=== PATIENT | female | born 1995 ===

== ENCOUNTER 2017-04-10 00:13 | Emergency (ER) | payer SELFPAY ==
[2017-04-10 00:18] VITALS: BP 114/78; PULSE 105; RESP 20; TEMP 98.3; O2SAT 100
--- NOTE | 2017-04-10 01:20 | C.PDOC ---
History Of Present Illness Patient is a 22 year old female who presents to the ER with a complaint of a dry cough, sore throat, itchy and watery eyes, and nasal discharge for the past 2 days. Patient reports taking dayquil with no relief to symptoms. Patient also reports subjective fever and chills. Denies recent travel or sick contact. Time Seen by Provider: 04/10/17 00:44 Chief Complaint (Nursing): Fever History Per: Patient History/Exam Limitations: no limitations Onset/Duration Of Symptoms: Days (2) Current Symptoms Are (Timing): Still Present Location Of Pain: Throat Sick Contacts (Context): None Associated Symptoms: Fever (Subjective), Chills (Subjective), Sore Throat, Cough , Nasal Congestion Recent travel outside of the [place]: No Past Medical History Reviewed: Historical Data, Nursing Documentation, Vital Signs Vital Signs: Last Vital Signs Temp 98.3 F 04/10/17 00:15 Pulse 105 H 04/10/17 00:15 Resp 20 04/10/17 00:15 BP 114/78 04/10/17 00:15 Pulse Ox 100 04/10/17 01:21 - Medical History PMH: No Chronic Diseases Surgical History: No Surg Hx Family History: States: Unknown Family Hx - Social History Hx Tobacco Use: No Hx Alcohol Use: No Hx Substance Use: No - Immunization History Hx Tetanus Toxoid Vaccination: No Hx Influenza Vaccination: No Hx Pneumococcal Vaccination: No Review Of Systems Constitutional: Positive for: Fever (Subjective), Chills (Subjective) Eyes: Positive for: Other (Itchy, watery) ENT: Positive for: Nose Discharge, Throat Pain Respiratory: Positive for: Cough Physical Exam - Physical Exam Appears: Well, Non-toxic Skin: Normal Color, Warm, Dry Head: Atraumatic, Normacephalic Nose: Discharge, Other (Enlarged turbinates) Oral Mucosa: Moist Chest: Symmetrical, No Tenderness Cardiovascular: Rhythm Regular, No Murmur Respiratory: Normal Breath Sounds, No Rales, No Rhonchi, No Wheezing Neurological/Psych: Oriented x3, Normal Speech, Normal Cognition ED Course And Treatment O2 Sat by Pulse Oximetry: 100 (Room air) Pulse Ox Interpretation: Normal Disposition Counseled Patient/Family Regarding: Diagnosis, Need For Followup, Rx Given - Disposition Disposition: HOME/ ROUTINE Disposition Time: 01:16 Condition: STABLE Additional Instructions: Increase PO fluids Take meds as directed Follow up with PMD Return to ER if worse Prescriptions: Ibuprofen [Motrin] 600 mg PO Q6H #20 tab Mometasone Furoate [Nasonex] 2 spray NS DAILY #1 bottle Instructions: Upper Respiratory Infection (ED) - Clinical Impression Clinical Impression: Upper respiratory infection - Scribe Statement The provider has reviewed the documentation as recorded by the Scribe Baljit Leija All medical record entries made by the Leaibjillian were at my direction and personally dictated by me. I have reviewed the chart and agree that the record accurately reflects my personal performance of the history, physical exam, medical decision making, and the department course for this patient. I have also personally directed, reviewed, and agree with the discharge instructions and disposition.
== END 2017-04-10 01:29 | disposition home or self-care (01) ==
LOC: C.ER 00:13
DX: J06.9 Acute upper respiratory infection, unspecified (principal)